=== PATIENT | female | born 1980 | race Caucasian/White ===

== ENCOUNTER 2017-09-17 21:17 | Emergency (ER) | payer BC, OTHER ==
[2017-09-17 21:26] VITALS: TEMP 98.1; BMI 28.3
--- NOTE | 2017-09-17 21:29 | PDOC ---
History of Present Illness - General Chief Complaint: Pain Stated Complaint: ABDOMIN AND SIDE PAIN Time Seen by Provider: 09/17/17 21:28 History Source: Patient Exam Limitations: No Limitations - History of Present Illness Initial Comments: 09/17/17 22:18 36 year old female with pmhx of asthma presented to the hospital today with one day history of sever abdominal pain that started yesterday afternoon , 02/26, local non radiating , mid epigastric, continuous , worsen with food, first time pain , she never had similiar pain before , she denies fever, chills , N/V/D/C, pt reports ear infection Monday and was treated at [facility] with Augmentin that cause her rash and diarrhea that resolved when she stop taking the Augmentin . She denies nay headache, lightheadedness, sore throat, chest pain , sob , she reports little cough non productive , she denies any hematuria , urinary symptoms , she currently has her periods. PMh: Asthma PSHx : X3 Allergies: Augmentin( Rash and diarrhea) , Azithromycine Meds: NOne FH: Ovarian cancer gran mother, DM aunt . Social: 06/22 PPD for one year , drink socially, denies drugs Physical exam: Vital Signs Period Temp Pulse Resp BP Sys/Weaver Pulse Ox Last 24 Hr 98.1 F 81 18 120/70 100 General: well nourished in NAD Head: NC/AT , Neck: supple no lymphademopathy ENT: MMM, HARINDER, EOMI, No exudate Lungs: CTA B/L Haert: RRR, no MRG Abdomen : soft, mid epigastric tenderness,Berg;s positive , + BS Neuro: no focal deficit, normal speeach and walk Skin: warm and dry Legs: No edema , + 2 DP DD: Biliary cholic choledocholithisis Ovarian cyst hepatic pathology cholitis Work UP: CBC, CMP US abdomen IV fluids BHCG EKG Past History - Past Medical History Allergies/Adverse Reactions: Allergies Allergy/AdvReac Type Severity Reaction Status Date / Time azithromycin [From Zithromax] Allergy Severe Hives Verified 09/17/17 21:22 aspirin Allergy Intermediate Hives Verified 09/17/17 21:22 amoxicillin [From Augmentin] Allergy Verified 09/17/17 21:22 clavulanic acid Allergy Verified 09/17/17 21:22 [From Augmentin] Home Medications: Ambulatory Orders Ibuprofen 600 mg PO BID PRN 10 Days #20 tablet 09/18/17 Anemia: Yes Asthma: Yes COPD: No - Immunization History Immunization Up to Date: Yes - Suicide/Smoking/Psychosocial Hx Smoking Status: No Smoking History: Former smoker Have you smoked in the past 12 months: Yes Number of Cigarettes Smoked Daily: 5 Information on smoking cessation initiated: No Hx Alcohol Use: Yes (social) Substance Use Type: None *Physical Exam - Vital Signs Last Vital Signs Temp Pulse Resp BP Pulse Ox 98.1 F 81 18 120/70 100 09/17/17 21:24 09/17/17 21:24 09/17/17 21:24 09/17/17 21:24 09/17/17 21:24 ED Treatment Course - LABORATORY CBC & Chemistry Diagram: 09/17/17 22:16 09/17/17 22:16 *DC/Admit/Observation/Transfer Diagnosis at time of Disposition: Fatty liver - Discharge Dispostion Disposition: HOME Condition at time of disposition: Improved - Prescriptions Prescriptions: Ibuprofen 600 mg PO BID PRN 10 Days #20 tablet PRN Reason: Pain - Referrals Referrals: Doctor Josie [Other] - Patient Instructions Additional Instructions: We saw that you have some changes in your liver that need to be followed up by 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 You need to make an appointment with them this week to have this further evaluated. Please avoid alcohol use until then. You can use ibuprofen for your pain. Please return to the ED if you have new or worsening symptoms. - Post Discharge Activity
[2017-09-17] MEDS ORDERED: SODIUM CHLORIDE 1,000 ML IV SCH (22:15)
[2017-09-17] MEDS ORDERED: ACETAMINOPHEN 1000 MG/100 ML VIAL (NON FORMULARY) IVPB ONE (22:15)
[2017-09-17] MEDS ORDERED: ONDANSETRON 4 MG/2 ML VIAL IVPUSH ONE (22:16)
[2017-09-17] MEDS ORDERED: ACETAMINOPHEN INJECTION 100 ML IVPB ONE (22:28)
[2017-09-17 22:29] LABS: URINE APPEARANCE CLEAR; URINE BILIRUBIN NEGATIVE (<2.0 mg/dL); URINE BLOOD NEGATIVE (NEGATIVE); URINE COLOR LTYELLOW; URINE GLUCOSE (UA) NEGATIVE (NEGATIVE); URINE KETONE NEGATIVE (NEGATIVE); URINE LEUK ESTERASE NEGATIVE (NEGATIVE); URINE NITRITE NEGATIVE (NEGATIVE); URINE PROTEIN NEGATIVE (NEGATIVE); URINE UROBILINOGEN NEGATIVE mg/dL (0.2-1.0)
[2017-09-17 22:32] LABS: BASO % 0.6 % (0-2.0); EOS % 3.5 % (0-4.5); HEMATOCRIT 28.9 % (32.4-45.2); HEMOGLOBIN 9.4 GM/dL (10.7-15.3); MCH 23.9 pg (25.7-33.7); MCHC 32.5 g/dl (32.0-36.0); MEAN CELL VOLUME 73.5 fl (80-96); MEAN PLT VOLUME 9.1 fl (7.5-11.1); NEUT % 48.9 % (42.8-82.8); PLATELET COUNT 221 K/MM3 (134-434); RBC 3.94 M/mm3 (3.60-5.2); RDW 14.7 % (11.6-15.6); WHITE BLOOD COUNT 5.2 K/mm3 (4.0-10.0)
[2017-09-17 23:01] LABS: ALBUMIN 3.9 g/dl (3.4-5.0); ANION GAP 6 (8-16); BLOOD UREA NITROGEN 16 mg/dL (7-18); CALCIUM 8.4 mg/dL (8.5-10.1); CHLORIDE 107 mmol/L (98-107); CO2 26 mmol/L (21-32); CREATININE 0.8 mg/dL (0.55-1.02); GLUCOSE,RANDOM 86 mg/dL (74-106); POTASSIUM 4.1 mmol/L (3.5-5.1); SGOT/AST 10 U/L (15-37); SGPT/ALT 17 U/L (12-78); SODIUM 139 mmol/L (136-145); TOT PROT 6.9 g/dl (6.4-8.2)
[2017-09-17 23:02] LABS: ALK PHOS 39 U/L (45-117)
--- NOTE | 2017-09-17 23:03 | PDOC ---
Attending Attestation - Resident Resident Name: Devin Villavicencio - ED Attending Attestation I have performed the following: I have examined & evaluated the patient, The case was reviewed & discussed with the resident, I agree w/resident's findings & plan, Exceptions are as noted - HPI HPI: 09/18/17 00:18 36 yo female with epigastric pain and nausea - Physicial Exam PE: 09/18/17 00:19 36 yo female w epigastric pain abd exam epigastric tenderness to deep palpation but no guarding or rebound cvs [id number] lungs cta b/l - Medical Decision Making 09/18/17 00:20 labs reviewed Us +fatty liver ,no cholecytitis plan pt had gastric sleeve 2 years ago and does have a gastroentologist to follow up with
[2017-09-17 23:05] LABS: BILIRUBIN,TOTAL < 0.1 mg/dL (0.2-1.0); LIPASE 290 U/L (73-393)
--- NOTE | 2017-09-18 00:25 | PDOC ---
*Physical Exam - Vital Signs Last Vital Signs Temp Pulse Resp BP Pulse Ox 98.1 F 81 18 120/70 99 09/17/17 21:24 09/17/17 21:24 09/17/17 21:24 09/17/17 21:24 09/17/17 22:43 ED Treatment Course - LABORATORY CBC & Chemistry Diagram: 09/17/17 22:16 09/17/17 22:16 - ADDITIONAL ORDERS Additional order review: Laboratory Results 09/17/17 09/17/17 09/17/17 22:16 22:16 22:16 Sodium 139 Potassium 4.1 Chloride 107 Carbon Dioxide 26 Anion Gap 6 L BUN 16 Creatinine 0.8 Creat Clearance w eGFR > 60 Random Glucose 86 Calcium 8.4 L Total Bilirubin < 0.1 L D AST 10 L ALT 17 Alkaline Phosphatase 39 L Total Protein 6.9 Albumin 3.9 Lipase 290 Serum , Qual Negative Urine Color Ltyellow Urine Appearance Clear Urine pH 6.0 Ur Specific [place] 1.020 Urine Protein Negative Urine Glucose (UA) Negative Urine Ketones Negative Urine Blood Negative Urine Nitrite Negative Urine Bilirubin Negative Urine Urobilinogen Negative Ur Leukocyte Esterase Negative 09/17/17 22:16 RBC 3.94 MCV 73.5 L MCHC 32.5 RDW 14.7 D MPV 9.1 Neutrophils % 48.9 D Lymphocytes % 42.0 H Monocytes % 5.0 Eosinophils % 3.5 Basophils % 0.6 - Medications Given in the ED: ED Medications Discontinued Medications Generic Name Dose Route Start Last Admin Trade Name Pelon PRN Reason Stop Dose Admin Acetaminophen 1,000 mg 09/17/17 22:15 09/17/17 22:26 Ofirmev Injection - IVPB 09/17/17 22:16 1,000 mg ONCE ONE Administration Ondansetron HCl 4 mg 09/17/17 22:16 09/17/17 22:38 Zofran Injection IVPUSH 09/17/17 22:17 Not Given ONCE ONE Medical Decision Making - Medical Decision Making 36 year old female 2 years s/p gastric sleeve presenting with RUQ pain for the past day. RUQ U/S only demonstrated fatty liver but all labs WNL and pain resolved with Tylenol 1 G and 1 L NS. Patient would like to go home. Will DC with follow up instructions with Dr. Cary and Dr. Solomon her PCP and GI doctor who did her gastric sleeve. Patient given paper copies of imaging results and lab values. Will write prescription for Ibuprofen. 09/18/17 00:19 *DC/Admit/Observation/Transfer Diagnosis at time of Disposition: Fatty liver - Discharge Dispostion Disposition: HOME Condition at time of disposition: Improved Admit: No - Prescriptions Prescriptions: Ibuprofen 600 mg PO BID PRN 10 Days #20 tablet PRN Reason: Pain - Referrals Referrals: Doctor Josie [Other] - Patient Instructions Additional Instructions: We saw that you have some changes in your liver that need to be followed up by your animal attendants and trainers. You need to make an appointment with them this week to have this further evaluated. Please avoid alcohol use until then. You can use ibuprofen for your pain. Please return to the ED if you have new or worsening symptoms. - Post Discharge Activity
--- NOTE | 2017-09-18 11:32 | EKG ---
Test Reason : Blood Pressure : / mmHG Vent. Rate : 068 BPM Atrial Rate : 068 BPM P-R Int : 098 ms QRS Dur : 094 ms QT Int : 436 ms P-R-T Axes : 015 025 015 degrees QTc Int : 463 ms SINUS RHYTHM WITH SHORT MT RSR' OR QR PATTERN IN V1 SUGGESTS RIGHT VENTRICULAR CONDUCTION DELAY LOW VOLTAGE QRS BORDERLINE ECG WHEN COMPARED WITH ECG OF 26-JAN-2014 23:36, T WAVE VARIATION Confirmed by BILLY BUSTAMANTE, DESTINY ([id number]) on 09/18/2017 11:31:21 AM Referred By: Confirmed By:DESTINY CERVANTES MD
== END 2017-09-18 00:41 | disposition home or self-care (01) ==
LOC: JER 21:17
PROC: 3E0337Z Introduction of Electrolytic and Water Balance Substance into Peripheral Vein, Percutaneous Approach (ICD-10-PCS; principal; 2017-09-17)
PROC: 3E033NZ Introduction of Analgesics, Hypnotics, Sedatives into Peripheral Vein, Percutaneous Approach (ICD-10-PCS; 2017-09-17)
DX: K76.0 Fatty (change of) liver, not elsewhere classified (principal)
CPT/HCPCS: 36415; 76705-TC; 80053; 81003; 83690; 84703; 85025; 93005; 93010; 99282-25; J0131; J7030

== ENCOUNTER 2019-07-01 15:41 | Observation (INO) | payer BC ==
--- NOTE | 2019-07-01 16:02 | PDOC ---
History of Present Illness - General Chief Complaint: Chest Pain Stated Complaint: CHEST PAIN Time Seen by Provider: 07/01/19 15:48 - History of Present Illness Initial Comments: Ms. Oakley is a 38 y/o female with no significant PMH presenting with left sided chest pain that started at 10am this morning. Reports that the pain is intermittent. Pain radiating down her left arm. No radiation to the neck or back. Reports associated shortness of breath at rest over the past week. Reports that she smoked a Juul this morning and has been smoking them for the past several months. Also reports associated heart palpitations today that were faster than prior. The last time she had chest pain was several months ago. Denies abdominal pain, denies urinary symptoms. PMH: none SocHx: denies etoh/drug use, reports caffeine use Meds: none Past History - Past Medical History Allergies/Adverse Reactions: Allergies Allergy/AdvReac Type Severity Reaction Status Date / Time azithromycin [From Zithromax] Allergy Severe Hives Verified 07/01/19 15:47 aspirin Allergy Intermediate Hives Verified 07/01/19 15:47 amoxicillin [From Augmentin] Allergy Verified 07/01/19 15:47 clavulanic acid Allergy Verified 07/01/19 15:47 [From Augmentin] Home Medications: Ambulatory Orders NK [No Known Home Medication] 07/01/19 Anemia: Yes Asthma: Yes COPD: No - Immunization History Immunization Up to Date: Yes - Psycho Social/Smoking Cessation Hx Smoking Status: No Smoking History: Never smoked Have you smoked in the past 12 months: Yes Number of Cigarettes Smoked Daily: 5 Hx Alcohol Use: Yes (social) Drug/Substance Use Hx: No Substance Use Type: None Review of Systems - Review of Systems Comments:: GENERAL/CONSTITUTIONAL: No fever or chills. No weakness._ HEAD, EYES, EARS, NOSE AND THROAT: No change in vision. No change in hearing. No sore throat._ CARDIOVASCULAR: Reports chest pain and shortness of breath. Reports palpitations. RESPIRATORY: Denies cough, hemoptysis_ GASTROINTESTINAL: No nausea, vomiting. Reports constipation. GENITOURINARY: No dysuria, frequency, or change in urination._ MUSCULOSKELETAL: No joint or muscle swelling or pain. No neck or back pain._ SKIN: No rash_ NEUROLOGIC: No headache, vertigo, loss of consciousness, or change in strength/ sensation._ ENDOCRINE: No increased thirst. No abnormal weight change_ HEMATOLOGIC/LYMPHATIC: No anemia, easy bleeding, or history of blood clots._ ALLERGIC/IMMUNOLOGIC: No hives or skin allergy._ *Physical Exam - Vital Signs Last Vital Signs Temp Pulse Resp BP Pulse Ox 98.1 F 70 18 97/48 L 100 07/02/19 04:00 07/02/19 04:00 07/02/19 04:00 07/02/19 04:00 07/02/19 04:00 - Physical Exam GENERAL: Awake, alert, and oriented to person/place/time, in no acute distress_ HEAD: No signs of trauma, normoc ephalic, atraumatic _ EYES: PERRLA, EOMI, sclera anicteric, conjunctiva clear_ ENT: Hearing grossly normal, nares patent, oropharynx clear without exudates. No uvular deviation. Moist mucosa_ NECK: Normal ROM, supple, no lymphadenopathy, JVD, or masses_ LUNGS: No distress, speaks in full sentences, clear to auscultation bilaterally _ HEART: Regular rate and rhythm, normal S1 and S2, no murmurs appreciated, peripheral pulses normal and equal bilaterally._ CHEST: No chest wall tenderness. No rash or bruising over chest wall. ABDOMEN: Soft, nontender, normoactive bowel sounds. No guarding, no rebound. No masses_ BACK: Mild left TTP. EXTREMITIES: Normal inspection, Normal range of motion, no edema. No clubbing or cyanosis_ NEUROLOGICAL: Cranial nerves II through XII grossly intact. Normal speech, normal gait, no focal sensorimotor deficits _ SKIN: Warm, Dry, normal turgor, no rashes or lesions noted_ ED Treatment Course - LABORATORY CBC & Chemistry Diagram: 07/01/19 16:15 07/01/19 16:15 - ADDITIONAL ORDERS Additional order review: Laboratory Results 07/01/19 07/01/19 17:36 17:36 Iron 12 L 9 L TIBC 429 Iron Saturation 2 L Unsaturated IBC 417 H 07/01/19 16:15 RBC 4.22 MCV 61.8 L MCHC 29.0 L RDW 16.7 H MPV 8.5 Neutrophils % No Result Required. Lymphocytes % No Result Required. - RADIOLOGY Radiology Studies Ordered: Category Date Time Status CHEST PA & LAT [RAD] Stat Radiology 07/01/19 15:49 Completed - Medications Given in the ED: ED Medications Discontinued Medications Generic Name Dose Route Start Last Admin Trade Name Pelon PRN Reason Stop Dose Admin Furosemide 20 mg 07/02/19 01:00 07/02/19 01:00 Lasix Injection - IVPUSH 07/02/19 01:01 20 mg ONCE ONE Administration Medical Decision Making - Medical Decision Making 07/01/19 15:45 EKG shows sinus rhythm, short CT (98 ms), no ST elevation/depression, no QTc prologation, no axis deviation. Short CT is present on prior EKG. 07/01/19 16:00 38F with no PMH presenting with chest pain that started at 10am today. -cbc, cmp, mg -cxr, ekg, trop -ua 07/01/19 17:00 CXR shows no acute intrathoracic pathology. 07/01/19 17:30 Labs reviewed. Pt is anemic, consented for blood transfusion. -type and screen -2 units pRBC Laboratory Last Values WBC 5.3 K/mm3 (4.0-10.8) 07/01/19 16:15 RBC 4.22 M/mm3 (3.60-5.2) 07/01/19 16:15 Hgb 7.5 GM/dl (10.7-15.3) L 07/01/19 16:15 Hct 26.0 % (32.4-45.2) L 07/01/19 16:15 MCV 61.8 fl (80-96) L 07/01/19 16:15 MCH 17.9 pg (25.7-33.7) L 07/01/19 16:15 MCHC 29.0 g/dl (32.0-36.0) L 07/01/19 16:15 RDW 16.7 % (11.6-15.6) H 07/01/19 16:15 Plt Count 300 K/MM3 (134-434) 07/01/19 16:15 MPV 8.5 fl (7.5-11.1) 07/01/19 16:15 Absolute Neuts (auto) 3.2 K/mm3 07/01/19 16:15 Neutrophils % No Result Required. 07/01/19 16:15 Neutrophils % (Manual) 69.0 % (42.8-82.8) 07/01/19 16:15 Lymphocytes % No Result Required. 07/01/19 16:15 Lymphocytes % (Manual) 26.0 % (8-40) 07/01/19 16:15 Monocytes % (Manual) 5 % (3.8-10.2) 07/01/19 16:15 Hypochromia 3+ 07/01/19 16:15 Platelet Estimate Adequate 07/01/19 16:15 Platelet Comment Few large platelets 07/01/19 16:15 Anisocytosis 1+ 07/01/19 16:15 Microcytosis 3+ 07/01/19 16:15 Schistocytes 1+ 07/01/19 16:15 Retic Count 0.80 % (0.5-1.5) 07/01/19 17:36 PT with INR 13.3 SEC (10.2-13.0) H 07/01/19 17:05 INR 1.19 (0.82-1.09) 07/01/19 17:05 PTT (Actin FS) 32.4 SECONDS (25.2-36.5) 07/01/19 17:05 Sodium 135 mmol/L (136-145) L 07/01/19 16:15 Potassium 4.1 mmol/L (3.5-5.1) 07/01/19 16:15 Chloride 105 mmol/L (98-107) 07/01/19 16:15 Carbon Dioxide 22 mmol/L (21-32) 07/01/19 16:15 Anion Gap 8 MMOL/L (8-16) 07/01/19 16:15 BUN 13.0 mg/dl (7-18) 07/01/19 16:15 Creatinine 0.8 mg/dl (0.55-1.3) 07/01/19 16:15 Est GFR (CKD-EPI)AfAm 109.93 07/01/19 16:15 Est GFR (CKD-EPI)NonAf 94.85 07/01/19 16:15 Random Glucose 92 mg/dl (74-106) 07/01/19 16:15 Calcium 8.6 mg/dl (8.5-10) 07/01/19 16:15 Magnesium 1.8 mg/dL (1.8-2.4) 07/01/19 16:15 Iron 9 ug/dL (50-175) L 07/01/19 17:36 TIBC 429 ug/dL (250-450) 07/01/19 17:36 Iron Saturation 2 % (17.5-39) L 07/01/19 17:36 Unsaturated IBC 417 ug/dL (200-275) H 07/01/19 17:36 Total Bilirubin 0.6 mg/dl (0.2-1) 07/01/19 16:15 AST 15 U/L (15-37) 07/01/19 16:15 ALT 11 U/L (13-61) L 07/01/19 16:15 Alkaline Phosphatase 35 U/L (45-117) L 07/01/19 16:15 Creatine Kinase 49 U/L (26-192) 07/01/19 16:15 Troponin I < 0.02 ng/ml (0.00-0.05) 07/02/19 04:30 Total Protein 7.2 g/dl (6.4-8.2) 07/01/19 16:15 Albumin 4.1 g/dl (3.4-5.0) 07/01/19 16:15 TSH 1.37 uIU/ml (0.358-3.74) 07/01/19 16:15 Urine Color Yellow 07/01/19 16:15 Urine Appearance Clear 07/01/19 16:15 Urine pH 6.5 (4.5-8) 07/01/19 16:15 Urine Protein Negative (NEGATIVE) 07/01/19 16:15 Urine Glucose (UA) Negative (NEGATIVE) 07/01/19 16:15 Urine Ketones Negative (NEGATIVE) 07/01/19 16:15 Urine Blood Negative (NEGATIVE) 07/01/19 16:15 Urine Nitrite Negative (NEGATIVE) 07/01/19 16:15 Urine Bilirubin Negative (NEGATIVE) 07/01/19 16:15 Urine Urobilinogen 0.2 (0.2-1.0) 07/01/19 16:15 Ur Leukocyte Esterase Negative (NEGATIVE) 07/01/19 16:15 Urine HCG, Qual Negative 07/01/19 16:15 Blood Type O POSITIVE 07/01/19 17:36 Antibody Screen Negative 07/01/19 17:36 Crossmatch See Detail 07/01/19 17:36 07/01/19 17:54 D/w [facility] Myers who accepts the patient for admission under Dr. Galarza. Discharge - Discharge Information Problems reviewed: Yes Clinical Impression/Diagnosis: Symptomatic anemia Condition: Stable - Admission Yes - Follow up/Referral - Patient Discharge Instructions - Post Discharge Activity
--- NOTE | 2019-07-01 16:10 | PDOC ---
Attending Attestation - Resident Resident Name: QamarRandal - ED Attending Attestation I have performed the following: I have examined & evaluated the patient, The case was reviewed & discussed with the resident, I agree w/resident's findings & plan - HPI HPI: 07/01/19 16:32 38 YOF with h/o asthma presenting with chest pain. Left sided chest pain radiating to arm that started this morning a/w Palpitations, intermittently since yesterday. Mild sob, worse with exertion starting 1 week ago Left flank pain 1 week ago Constipation x 1 week No urinary sx, no hematuria Smoked Lucien today, regular Lucien user x several months +caffeine intake regularly pt endorses heavy menstrual periods x long time, noncompliant with iron pills, has seen her OB for it, no prior history of transfusion. LMP 06/07/19. usually heavy x 5 days, menses lasts 7 days. 07/01/19 17:26 07/01/19 18:06 - Physicial Exam PE: 07/01/19 16:31 Agree with the resident's HPI and PE as documented in the electronic medical record. NAD, EOMI, PERRL, pale conjunctiva, anicteric; neck supple. lungs clear, RRR, no murmur, abdomen soft nontender. No rebound, no guarding. Back nontender. JOSEPH x4, no focal neuro deficits. No peripheral edema. pale color for ethnicity, WWP. 07/01/19 17:28 07/01/19 18:05 - Medical Decision Making 07/01/19 16:31 Vital Signs Temp Pulse Resp BP Pulse Ox 98 F 73 18 120/71 100 07/01/19 15:41 07/01/19 15:41 07/01/19 15:41 07/01/19 15:41 07/01/19 15:41 vitals reviewed, wnl, reassuring, normotensive. DDx chest pain: ACS, coronary vasospasm, NSTEMI, arrhythmia, unstable angina, PE , dissection, PUD, esophageal spasm, GERD, gastritis, costochondritis, pneumonia , pleurisy, pericarditis/myocarditis. Anemia, dehydration, electrolyte/ metabolic derangements. pneumomediastinum. Considered but clinically doubt based on HPI and PE: Low suspicion for pulmonary embolism or dissection. PERC criteria neg, defer dimer testing as there is alternative etiology for cp/ sob and palp. No evidence of ACS, pericarditis, myocarditis, pulmonary embolism, pneumothorax , pneumonia, Zoster, or esophageal perforation. Historically not abrupt in onset , tearing or ripping, pulses symmetric, no evidence of aortic dissection. EKG normal sinus rhythm, no interval abnormalities, narrow QRS, ST and T wave segments and morphology normal. Nonspecific T wave abnormalities, unchanged from prior 07/01/19 17:03 trop neg, unlikely cardiac. UA neg for blood/infection, so doubt kidney stones/ pyelo, no urinary sx to suggest infection. neg preg test. labs and lytes remarkable for acute on chronic anemia, H/H down to 7.5/26, baseline Hb ~10 in prior years. symptomatic anemia. transfuse 2 units prbc iron studies/anemia panel sent bleeding history, menometrorhaggia likely contributor for symptomatic anemia. txs sent x2 consent for blood transfusion discussed, risks and benefits, pt agreeable, verbalizing risks such as incompatibility, immune reaction, allergic reaction, anaphylaxis, TACO, TRALI, infection, fever, myalgias, urticaria, admit for symptomatic anemia, transfusion, supportive care and close monitoring s/o to [facility], admitting to Dr Galarza. for now, 1 unit prbc, then will reassess 07/01/19 18:06 Heart Score/ECG Review #1 ECG reviewed & interpreted by me at: 16:00 General ECG Interpretation: Sinus Rhythm, Normal Rate, Normal Intervals Compared to previous ECG there are: No significant change 07/01/19 16:10 EKG normal sinus rhythm 72 bpm, short [place] interval and 98 ms, narrow QRS, ST and T wave segments and morphology normal. Nonspecific T wave abnormalities in the inferior leads, similar to prior EKG
[2019-07-01 16:45] LABS: HEMOGLOBIN 7.5 GM/dl (10.7-15.3); MEAN CELL VOLUME 61.8 fl (80-96); MEAN PLT VOLUME 8.5 fl (7.5-11.1); PLATELET COUNT 300 K/MM3 (134-434); RBC 4.22 M/mm3 (3.60-5.2); RDW 16.7 % (11.6-15.6); WHITE BLOOD COUNT 5.3 K/mm3 (4.0-10.8)
[2019-07-01 16:47] LABS: MCH 17.9 pg (25.7-33.7)
[2019-07-01 17:02] LABS: ALBUMIN 4.1 g/dl (3.4-5.0); BILIRUBIN,TOTAL 0.6 mg/dl (0.2-1); CALCIUM 8.6 mg/dl (8.5-10); CREATININE 0.8 mg/dl (0.55-1.3); MAGNESIUM 1.8 mg/dL (1.8-2.4); POTASSIUM 4.1 mmol/L (3.5-5.1); TOT PROT 7.2 g/dl (6.4-8.2)
[2019-07-01 17:33] LABS: ACTIVATED PTT 32.4 SECONDS (25.2-36.5)
[2019-07-01 17:37] LABS: INR 1.19 (0.82-1.09); PROTHROMBIN TIME (PATIENT) 13.3 SEC (10.2-13.0)
[2019-07-01 17:38] LABS: ANISOCYTOSIS 1+
[2019-07-01 17:39] LABS: PLATELET ESTIMATE ADEQUATE
--- NOTE | 2019-07-01 18:19 | CON.CARD ---
Consult Consult Specialty:: Cardiology Referred by:: Hospitalist Medicine Reason for Consultation:: Chest pain - History of Present Illness Chief Complaint: Chest pain History of Present Illness: Ms. Oakley is a 38 y/o female with no significant PMH presenting with sharp, non-exertional left-sided pleuritic chest pain radiating down her left arm. No radiation to the neck or back. Reports associated shortness of breath at rest over the past week. Reports that she smoked a Juul this morning and has been smoking them for the past several months. Also reports associated heart palpitations. Anemic with heavy menses. - History Source History Provided By: Patient Limitations to Obtaining History: No Limitations - Alcohol/Substance Use Hx Alcohol Use: Yes (social) - Smoking History Smoking history: Never smoked Have you smoked in the past 12 months: Yes Aproximately how many cigarettes per day: 5 Home Medications - Allergies Allergies/Adverse Reactions: Allergies Allergy/AdvReac Type Severity Reaction Status Date / Time azithromycin [From Zithromax] Allergy Severe Hives Verified 07/01/19 15:47 aspirin Allergy Intermediate Hives Verified 07/01/19 15:47 amoxicillin [From Augmentin] Allergy Verified 07/01/19 15:47 clavulanic acid Allergy Verified 07/01/19 15:47 [From Augmentin] - Home Medications Home Medications: Ambulatory Orders NK [No Known Home Medication] 07/01/19 Review of Systems - Review of Systems Cardiovascular: reports: Chest Pain, Shortness of Breath Vital Signs: Vital Signs Temperature 98 F 07/01/19 15:41 Pulse Rate 73 07/01/19 15:41 Respiratory Rate 18 07/01/19 15:41 Blood Pressure 120/71 07/01/19 15:41 O2 Sat by Pulse Oximetry (%) 100 07/01/19 15:41 Constitutional: Yes: No Distress, Calm Neck: Yes: Supple Respiratory: Yes: Regular, CTA Bilaterally Gastrointestinal: Yes: Normal Bowel Sounds, Soft Cardiovascular: Yes: Regular Rate and Rhythm JVD: No Carotid Bruit: No Heart Sounds: Yes: S1, S2 Edema: No - Other Data Labs, Other Data: CBC, BMP 07/01/19 16:15 07/01/19 16:15 INR, PTT INR 1.19 (0.82-1.09) 07/01/19 17:05 Troponin, BNP 07/01/19 15:54 Troponin I < 0.03 Troponin, BNP 07/01/19 15:54 Troponin I < 0.03 Imaging - Results Chest X-ray: Report Reviewed (NAD) Problem List - Problems (1) Atypical chest pain Code(s): R07.89 - OTHER CHEST PAIN (2) Anemia Code(s): D64.9 - ANEMIA, UNSPECIFIED Qualifiers: Iron deficiency anemia type: chronic blood loss (3) Nicotine vapor product user Code(s): Z72.0 - TOBACCO USE Assessment/Plan EKG shows sinus rhythm, short [place] (98 ms), no ST elevation/depression, no QTc prolongation, no axis deviation. Short [place] is present on prior EKG. 1. Atypical chest pain syndrome and dyspnea ? bronchospasm/ATX with Juul use 2. Palpitations r/o sustained arrhythmia 3. Anemia referable to menometrorhaggia P:1. Transfusing 1 U pRBC to maintain Hgb>8.0, f/u iron studies and supplement 2. Ruling out for MT 3. Abstinence from vaping, BD and O2 as needed 4. Thank you for consultative opportunity
--- NOTE | 2019-07-01 18:21 | HP ---
CHIEF COMPLAINT: Chest pain PCP: Russ Streeter DRAPERY CUTTER MACHINE: Dr. Isak Sow [place] HISTORY OF PRESENT ILLNESS: Ms. Oakley is a 38 year-old female with a PMH significant for anemia, asthma, s /p gastric sleeve, who presented to the ED for evaluation of chest pain. Patient reports onset of left-sided chest pain at 10:00am this morning. Patient describes the pain as sharp, intermittent, radiating from right to left chest and down the left arm. Patient also reports a rapid heart beat over the past several days with accompanying shortness of breath. She has felt fatigued x 1 week. A year ago patient was told she had fibroids. She saw a DRAPERY CUTTER MACHINE doctor last week and had a transvaginal US. LMP 06/07/19. No prior history of transfusion. 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 Smoking: quit smoking 4 years ago, smoked since age 14; has been vaping Juul x several months Alcohol: occasional Drugs: denies Family history: mother age 58 with anemia; father 60 with HTN, kidney stones; 2 step siblings a&w; 3 children a&w Allergies azithromycin [From Zithromax] Allergy (Severe, Verified 07/01/19 15:47) Hives aspirin Allergy (Intermediate, Verified 07/01/19 15:47) Hives amoxicillin [From Augmentin] Allergy (Verified 07/01/19 15:47) clavulanic acid [From Augmentin] Allergy (Verified 07/01/19 15:47) HOME MEDICATIONS: Home Medications Medication Instructions Recorded NK [No Known Home Medication] 07/01/19 REVIEW OF SYSTEMS CONSTITUTIONAL: +fatigue, sweats Absent: fever, chills, diaphoresis, generalized weakness, malaise, loss of appetite, weight change HEENT: Absent: rhinorrhea, nasal congestion, throat pain, throat swelling, difficulty swallowing, mouth swelling, ear pain, eye pain, visual changes CARDIOVASCULAR: +chest pain, rapid heart rate Absent: syncope, palpitations, irregular heart rate, lightheadedness, peripheral edema RESPIRATORY: Absent: cough, shortness of breath, dyspnea with exertion, orthopnea, wheezing, stridor, hemoptysis GASTROINTESTINAL: Absent: abdominal pain, abdominal distension, nausea, vomiting, diarrhea, constipation, melena, hematochezia GENITOURINARY: Absent: dysuria, frequency, urgency, hesitancy, hematuria, flank pain, genital pain MUSCULOSKELETAL: Absent: myalgia, arthralgia, joint swelling, back pain, neck pain SKIN: Absent: rash, itching, pallor HEMATOLOGIC/IMMUNOLOGIC: Absent: easy bleeding, easy bruising, lymphadenopathy, frequent infections ENDOCRINE: Absent: unexplained weight gain, unexplained weight loss, heat intolerance, cold intolerance NEUROLOGIC: Absent: headache, focal weakness or paresthesias, dizziness, unsteady gait, seizure, mental status changes, bladder or bowel incontinence PSYCHIATRIC: Absent: anxiety, depression, suicidal or homicidal ideation, hallucinations. PHYSICAL EXAMINATION Vital Signs - 24 hr 07/01/19 15:41 Temperature 98 F Pulse Rate 73 Respiratory 18 Rate Blood Pressure 120/71 O2 Sat by Pulse 100 Oximetry (%) GENERAL: Awake, alert, and fully oriented, in no acute distress. HEAD: Normal with no signs of trauma. EYES: Pupils equal, round and reactive to light, extraocular movements intact, sclera anicteric, conjunctiva clear. EARS, NOSE, THROAT: Ears normal, nares patent, oropharynx clear without exudates. Moist mucous membranes. LUNGS: Breath sounds equal, clear to auscultation bilaterally. No wheezes, and no crackles. No accessory muscle use. HEART: Regular rate and rhythm, normal S1 and S2 ABDOMEN: Soft, nontender, not distended MUSCULOSKELETAL: Normal range of motion at all joints. No bony deformities or tenderness. No CVA tenderness. UPPER EXTREMITIES: 2+ pulses, warm, well-perfused. No cyanosis. No clubbing. No peripheral edema. LOWER EXTREMITIES: 2+ pulses, warm, well-perfused. No calf tenderness. No peripheral edema. NEUROLOGICAL: Cranial nerves II-XII intact. Normal speech. Laboratory Results - last 24 hr 07/01/19 07/01/19 07/01/19 15:54 16:15 16:15 WBC 5.3 RBC 4.22 Hgb 7.5 L Hct 26.0 L MCV 61.8 L MCH 17.9 L MCHC 29.0 L RDW 16.7 H Plt Count 300 MPV 8.5 Absolute Neuts (auto) 3.2 Neutrophils % No Result Required. Neutrophils % (Manual) 69.0 Lymphocytes % No Result Required. Lymphocytes % (Manual) 26.0 Monocytes % (Manual) 5 Hypochromia 3+ Platelet Estimate Adequate Platelet Comment Few large platelets Anisocytosis 1+ Microcytosis 3+ Schistocytes 1+ PT with INR INR PTT (Actin FS) Sodium 135 L Potassium 4.1 Chloride 105 Carbon Dioxide 22 Anion Gap 8 BUN 13.0 Creatinine 0.8 Est GFR (CKD-EPI)AfAm 109.93 Est GFR (CKD-EPI)NonAf 94.85 Random Glucose 92 Calcium 8.6 Magnesium 1.8 Total Bilirubin 0.6 AST 15 ALT 11 L Alkaline Phosphatase 35 L Creatine Kinase 49 Troponin I < 0.03 Total Protein 7.2 Albumin 4.1 Urine Color Urine Appearance Urine pH Urine Protein Urine Glucose (UA) Urine Ketones Urine Blood Urine Nitrite Urine Bilirubin Urine Urobilinogen Ur Leukocyte Esterase Urine HCG, Qual 07/01/19 07/01/19 07/01/19 16:15 16:15 17:05 WBC RBC Hgb Hct MCV MCH MCHC RDW Plt Count MPV Absolute Neuts (auto) Neutrophils % Neutrophils % (Manual) Lymphocytes % Lymphocytes % (Manual) Monocytes % (Manual) Hypochromia Platelet Estimate Platelet Comment Anisocytosis Microcytosis Schistocytes PT with INR 13.3 H INR 1.19 PTT (Actin FS) 32.4 Sodium Potassium Chloride Carbon Dioxide Anion Gap BUN Creatinine Est GFR (CKD-EPI)AfAm Est GFR (CKD-EPI)NonAf Random Glucose Calcium Magnesium Total Bilirubin AST ALT Alkaline Phosphatase Creatine Kinase Troponin I Total Protein Albumin Urine Color Yellow Urine Appearance Clear Urine pH 6.5 Urine Protein Negative Urine Glucose (UA) Negative Urine Ketones Negative Urine Blood Negative Urine Nitrite Negative Urine Bilirubin Negative Urine Urobilinogen 0.2 Ur Leukocyte Esterase Negative Urine HCG, Qual Negative ASSESSMENT/PLAN: Ms. Oakley is a 38 year-old female with a PMH significant for anemia, asthma, and s/p gastric sleeve, placed on observation for chest pain and symptomatic anemia. Chest pain --troponin neg x 1, two pending --ECG: no acute ischemia --CXR: unremarkable --telemetry monitoring --Echo in am --allergic to ASA --cardiology consult Microcytic anemia --Hgb 7.5, last hgb value from 2017 was 9.4 --transfuse 1U PRBC tonight, repeat cbc in am --likely secondary to fibroids; had transvaginal US last week with Dr. Sow, will get results Asthma --stable --duonebs PRN FEN Fluids: PO intake adequate Electrolytes: replete as indicated Nutrition: regular diet DVT prophylaxis: subq lovenox Dispo: continues to require inpatient care. Full code. Visit type - Emergency Visit Emergency Visit: Yes ED Registration Date: 07/01/19 Care time: The patient presented to the Emergency Department on the above date and was hospitalized for further evaluation of their emergent condition. - New Patient This patient is new to me today: Yes Date on this admission: 07/02/19 - Critical Care Critical Care patient: No
[2019-07-01] MEDS ORDERED: ALBUTEROL SO4 2.5/IPRATROPIUM 0.5 INH SOL 3 ML VIAL.NEB. NEB PRN (18:29)
[2019-07-01 20:46] LABS: IRON SERUM 12 ug/dL (50-175); TOTAL IRON BINDING CAPACITY 429 ug/dL (250-450)
[2019-07-01 22:18] VITALS: BMI 31.4
[2019-07-02] MEDS ORDERED: FUROSEMIDE 40 MG/4 ML INJECTABLE VIAL IVPUSH ONE (01:00)
[2019-07-02 08:33] LABS: BASO % 0.5 % (0-2.0); EOS % 2.4 % (0-4.5); HEMATOCRIT 27.8 % (32.4-45.2); HEMOGLOBIN 8.6 GM/dl (10.7-15.3); LYMPH % 39.4 % (8-40); MCHC 30.9 g/dl (32.0-36.0); MEAN CELL VOLUME 64.4 fl (80-96); MEAN PLT VOLUME 8.7 fl (7.5-11.1); MONO % 6.2 % (3.8-10.2); NEUT % 51.5 % (42.8-82.8); PLATELET COUNT 253 K/MM3 (134-434); RDW 18.4 % (11.6-15.6); WHITE BLOOD COUNT 4.2 K/mm3 (4.0-10.8)
[2019-07-02 08:41] LABS: ADD RBC MORPHOLOGY YES; MCH 19.9 pg (25.7-33.7)
[2019-07-02] MEDS: ACETAMINOPHEN 325 MG TABLET (FP) PO PRN ×2 (09:58→15:29)
[2019-07-02] MEDS ORDERED: ENOXAPARIN NA (PORCINE) 40 MG/0.4 ML DISP.SYRIN SQ SCH (10:00)
[2019-07-02] MEDS ORDERED: POLYETHYLENE GLYCOL 3350 119 GM BTL PO SCH (10:00)
[2019-07-02 10:33] LABS: ANISOCYTOSIS 1+
[2019-07-02 10:34] LABS: PLATELET ESTIMATE ADEQUATE
[2019-07-02 10:54] LABS: BILIRUBIN,TOTAL 0.7 mg/dL (0.2-1); BLOOD UREA NITROGEN 11.8 mg/dL (7-18); CALCIUM 8.4 mg/dL (8.5-10.1); CREATININE 0.9 mg/dL (0.55-1.3); MAGNESIUM 2.1 mg/dL (1.8-2.4); POTASSIUM 4.3 mmol/L (3.5-5.1); TOT PROT 7.1 g/dl (6.4-8.2)
--- NOTE | 2019-07-02 11:55 | PN ---
Progress Note, Physician Chief Complaint: Events noted Pleuritic chest discomfort History of Present Illness: Patient was seen and examined. Awake and alert. Chart was reviewed Denies shortness of breath. Complains of intermittent palpitations - Current Medication List Current Medications: Active Medications Acetaminophen (Tylenol -) 650 mg PO Q6H PRN PRN Reason: PAIN LEVEL 1-5 Last Admin: 07/02/19 09:58 Dose: 650 mg Enoxaparin Sodium (Lovenox -) 40 mg SQ DAILY [facility] Last Admin: 07/02/19 09:59 Dose: 40 mg Polyethylene Glycol (Miralax (For Daily Use) -) 17 gm PO DAILY [facility] Last Admin: 07/02/19 09:59 Dose: 17 gm - Objective Vital Signs: Vital Signs Temperature 98.1 F 07/02/19 04:00 Pulse Rate 70 07/02/19 04:00 Respiratory Rate 16 07/02/19 09:00 Blood Pressure 97/48 L 07/02/19 04:00 O2 Sat by Pulse Oximetry (%) 99 07/02/19 09:00 Eyes: Yes: PERRL HENT: Yes: Atraumatic Neck: Yes: Supple Cardiovascular: Yes: Regular Rate and Rhythm, S1 Respiratory: Yes: CTA Bilaterally Gastrointestinal: Yes: Normal Bowel Sounds, Soft. No: Tenderness Edema: No Additional Findings/Remarks: - Review of Systems Constitutional: denies: Chills, Fever Cardiovascular: reports: Chest Pain. (+) Palpitations, Shortness of Breath Respiratory: denies: Cough, Hemoptysis, Orthopnea, PND, SOB, SOB on Exertion Gastrointestinal: denies: Abdominal Pain, Constipation, Diarrhea, Melena, Nausea , Rectal Bleeding, Vomiting Genitourinary: denies: Dysuria, Hematuria Neurological: denies: Dizziness, Headache, Seizure, Syncope Labs: CBC, BMP 07/02/19 07:25 07/02/19 07:25 INR, PTT INR 1.19 (0.82-1.09) 07/01/19 17:05 Problem List - Problems (1) Anemia Code(s): D64.9 - ANEMIA, UNSPECIFIED Qualifiers: Iron deficiency anemia type: chronic blood loss (2) Atypical chest pain Code(s): R07.89 - OTHER CHEST PAIN (3) Nicotine vapor product user Code(s): Z72.0 - TOBACCO USE (4) Symptomatic anemia Code(s): D64.9 - ANEMIA, UNSPECIFIED Assessment/Plan 1. Atypical chest pain syndrome and dyspnea ? bronchospasm/atelectasis with Juul use 2. Palpitations 3. Anemia PLAN: 1. Follow CBC and transfuse as needed 2. Echocardiography to assess LV/RV and valvular function 3. Abstinence from vaping, bronchodilator and O2 as needed Johny Loaiza MD
--- NOTE | 2019-07-02 12:44 | EKG ---
Test Reason : Blood Pressure : / mmHG Vent. Rate : 062 BPM Atrial Rate : 062 BPM P-R Int : 110 ms QRS Dur : 088 ms QT Int : 460 ms P-R-T Axes : 032 024 006 degrees QTc Int : 466 ms SINUS RHYTHM WITH SHORT OR LOW VOLTAGE QRS CANNOT RULE OUT ANTERIOR INFARCT , AGE UNDETERMINED ABNORMAL ECG WHEN COMPARED WITH ECG OF 01-JUL-2019 15:40, NO SIGNIFICANT CHANGE WAS FOUND Confirmed by MD Andrade, Isak ([id number]) on 07/02/2019 12:44:21 PM Referred By: Confirmed By:Isak Zafar MD
--- NOTE | 2019-07-02 12:45 | EKG ---
Test Reason : Blood Pressure : / mmHG Vent. Rate : 072 BPM Atrial Rate : 072 BPM P-R Int : 098 ms QRS Dur : 086 ms QT Int : 418 ms P-R-T Axes : 028 020 003 degrees QTc Int : 457 ms SINUS RHYTHM WITH SHORT NV OTHERWISE NORMAL ECG WHEN COMPARED WITH ECG OF 17-SEP-2017 22:37, T WAVE INVERSION NO LONGER EVIDENT IN ANTERIOR LEADS Confirmed by MD Andrade, Isak ([id number]) on 07/02/2019 12:44:40 PM Referred By: Confirmed By:Isak Zafar MD
[2019-07-02 14:20] VITALS: TEMP 97.9
--- NOTE | 2019-07-02 14:21 | ECHO ---
Version: 1 Name: HELENA GARZON Exam: Adult Echocardiogram Study Date: 07/02/2019, 1:30 PM Age: 38 Years MMode/2D Measurements & Calculations IVSd: 0.77 cm LVIDs: 3.1 cm LVIDd: 4.9 cm LVPWd: 0.83 cm LVOT diam: 2.00 cm Ao root diam: 2.26 cm LA dimension: 2.9 cm Doppler Measurements & Calculations MV E max bev: 87.9 cm/sec MV A max bev: 54.6 cm/sec MV E/A: 1.61 MR max P.9 mmHg Ao max P.9 mmHg Ao V2 max: 149.2 cm/sec TR max bev: 200.9 cm/sec TR max P.1 mmHg Procedure A complete two-dimensional transthoracic echocardiogram was performed (2D, M-mode, Doppler and color flow Doppler). Left Ventricle The left ventricular size, thickness and function are normal. The left ventricular ejection fraction is normal. Left Ventricular Filling pattern is normal for age. Right Ventricle The right ventricle is normal in size and function. Atria Normal left and right atrial size and function. Mitral Valve The mitral valve is normal in structure and function. Tricuspid Valve The tricuspid valve is normal in structure and function. Aortic Valve The aortic valve is normal in structure and function. No hemodynamically significant valvular aortic stenosis. Pulmonic Valve The pulmonic valve is normal in structure and function. Great Vessels The aortic root is normal size. Pericardium/Pleura There is no pericardial effusion. Summary Statements The left ventricular size, thickness and function are normal The right ventricle is normal in size and function. Jhonathan Schultz 07/02/2019, 2:20 PM Ordering Physician: Debi yMers Performed By: Delmis Danielson
[2019-07-02 15:44] VITALS: BP 99/56; PULSE 60
[2019-07-02 16:27] LABS: HEMATOCRIT 32.6 % (32.4-45.2); HEMOGLOBIN 9.8 GM/dl (10.7-15.3); MCH 20.5 pg (25.7-33.7); MEAN CELL VOLUME 68.3 fl (80-96); MEAN PLT VOLUME 8.6 fl (7.5-11.1); PLATELET COUNT 248 K/MM3 (134-434); RBC 4.77 M/mm3 (3.60-5.2); WHITE BLOOD COUNT 5.6 K/mm3 (4.0-10.8)
--- NOTE | 2019-07-02 17:22 | DS ---
Documentation entered by Lorena Stoner SCRIBE, acting as scribe for Debi Myers NP. Physical Exam: SUBJECTIVE: Patient seen and examined at bedside. OBJECTIVE: Vital Signs Period Temp Pulse Resp BP Sys/Weaver Pulse Ox Last 24 Hr 98 F-98.2 F 68-73 16-18 97-120/48-71 99-100 PHYSICAL EXAM GENERAL: The patient is awake, alert, and fully oriented, in no acute distress. ENT: Ears normal, nares patent, oropharynx clear without exudates, moist mucous membranes. LUNGS: Breath sounds equal, clear to auscultation bilaterally, no wheezes, no crackles, no accessory muscle use. HEART: Regular rate and rhythm, S1, S2 ABDOMEN: Soft, nontender, nondistended EXTREMITIES: 2+ pulses, warm, well-perfused, no edema. NEUROLOGICAL: Cranial nerves II through XII grossly intact. Normal speech, gait not observed. LABS Laboratory Results - last 24 hr 07/01/19 07/01/19 07/01/19 15:54 16:15 16:15 WBC 5.3 RBC 4.22 Hgb 7.5 L Hct 26.0 L MCV 61.8 L MCH 17.9 L MCHC 29.0 L RDW 16.7 H Plt Count 300 MPV 8.5 Absolute Neuts (auto) 3.2 Neutrophils % No Result Required. Neutrophils % (Manual) 69.0 Lymphocytes % No Result Required. Lymphocytes % (Manual) 26.0 Monocytes % (Manual) 5 Hypochromia 3+ Platelet Estimate Adequate Platelet Comment Few large platelets Anisocytosis 1+ Microcytosis 3+ Schistocytes 1+ Retic Count PT with INR INR PTT (Actin FS) Sodium 135 L Potassium 4.1 Chloride 105 Carbon Dioxide 22 Anion Gap 8 BUN 13.0 Creatinine 0.8 Est GFR (CKD-EPI)AfAm 109.93 Est GFR (CKD-EPI)NonAf 94.85 Random Glucose 92 Calcium 8.6 Magnesium 1.8 Iron TIBC Iron Saturation Unsaturated IBC Total Bilirubin 0.6 AST 15 ALT 11 L Alkaline Phosphatase 35 L Creatine Kinase 49 Troponin I < 0.03 Total Protein 7.2 Albumin 4.1 TSH 1.37 Urine Color Urine Appearance Urine pH Urine Protein Urine Glucose (UA) Urine Ketones Urine Blood Urine Nitrite Urine Bilirubin Urine Urobilinogen Ur Leukocyte Esterase Urine HCG, Qual Blood Type Antibody Screen Crossmatch 07/01/19 07/01/19 07/01/19 16:15 16:15 17:05 WBC RBC Hgb Hct MCV MCH MCHC RDW Plt Count MPV Absolute Neuts (auto) Neutrophils % Neutrophils % (Manual) Lymphocytes % Lymphocytes % (Manual) Monocytes % (Manual) Hypochromia Platelet Estimate Platelet Comment Anisocytosis Microcytosis Schistocytes Retic Count PT with INR 13.3 H INR 1.19 PTT (Actin FS) 32.4 Sodium Potassium Chloride Carbon Dioxide Anion Gap BUN Creatinine Est GFR (CKD-EPI)AfAm Est GFR (CKD-EPI)NonAf Random Glucose Calcium Magnesium Iron TIBC Iron Saturation Unsaturated IBC Total Bilirubin AST ALT Alkaline Phosphatase Creatine Kinase Troponin I Total Protein Albumin TSH Urine Color Yellow Urine Appearance Clear Urine pH 6.5 Urine Protein Negative Urine Glucose (UA) Negative Urine Ketones Negative Urine Blood Negative Urine Nitrite Negative Urine Bilirubin Negative Urine Urobilinogen 0.2 Ur Leukocyte Esterase Negative Urine HCG, Qual Negative Blood Type Antibody Screen Crossmatch 07/01/19 07/01/19 07/01/19 17:36 17:36 17:36 WBC RBC Hgb Hct MCV MCH MCHC RDW Plt Count MPV Absolute Neuts (auto) Neutrophils % Neutrophils % (Manual) Lymphocytes % Lymphocytes % (Manual) Monocytes % (Manual) Hypochromia Platelet Estimate Platelet Comment Anisocytosis Microcytosis Schistocytes Retic Count 0.80 PT with INR INR PTT (Actin FS) Sodium Potassium Chloride Carbon Dioxide Anion Gap BUN Creatinine Est GFR (CKD-EPI)AfAm Est GFR (CKD-EPI)NonAf Random Glucose Calcium Magnesium Iron 9 L 12 L TIBC 429 Iron Saturation 2 L Unsaturated IBC 417 H Total Bilirubin AST ALT Alkaline Phosphatase Creatine Kinase Troponin I Total Protein Albumin TSH Urine Color Urine Appearance Urine pH Urine Protein Urine Glucose (UA) Urine Ketones Urine Blood Urine Nitrite Urine Bilirubin Urine Urobilinogen Ur Leukocyte Esterase Urine HCG, Qual Blood Type Antibody Screen Crossmatch 07/01/19 07/02/19 07/02/19 17:36 00:45 00:45 WBC RBC Hgb Hct MCV MCH MCHC RDW Plt Count MPV Absolute Neuts (auto) Neutrophils % Neutrophils % (Manual) Lymphocytes % Lymphocytes % (Manual) Monocytes % (Manual) Hypochromia Platelet Estimate Platelet Comment Anisocytosis Microcytosis Schistocytes Retic Count PT with INR INR PTT (Actin FS) Sodium Potassium Chloride Carbon Dioxide Anion Gap BUN Creatinine Est GFR (CKD-EPI)AfAm Est GFR (CKD-EPI)NonAf Random Glucose Calcium Magnesium Iron TIBC Iron Saturation Unsaturated IBC Total Bilirubin AST ALT Alkaline Phosphatase Creatine Kinase Troponin I Cancelled < 0.02 Total Protein Albumin TSH Urine Color Urine Appearance Urine pH Urine Protein Urine Glucose (UA) Urine Ketones Urine Blood Urine Nitrite Urine Bilirubin Urine Urobilinogen Ur Leukocyte Esterase Urine HCG, Qual Blood Type O POSITIVE Antibody Screen Negative Crossmatch See Detail 07/02/19 04:30 WBC RBC Hgb Hct MCV MCH MCHC RDW Plt Count MPV Absolute Neuts (auto) Neutrophils % Neutrophils % (Manual) Lymphocytes % Lymphocytes % (Manual) Monocytes % (Manual) Hypochromia Platelet Estimate Platelet Comment Anisocytosis Microcytosis Schistocytes Retic Count PT with INR INR PTT (Actin FS) Sodium Potassium Chloride Carbon Dioxide Anion Gap BUN Creatinine Est GFR (CKD-EPI)AfAm Est GFR (CKD-EPI)NonAf Random Glucose Calcium Magnesium Iron TIBC Iron Saturation Unsaturated IBC Total Bilirubin AST ALT Alkaline Phosphatase Creatine Kinase Troponin I < 0.02 Total Protein Albumin TSH Urine Color Urine Appearance Urine pH Urine Protein Urine Glucose (UA) Urine Ketones Urine Blood Urine Nitrite Urine Bilirubin Urine Urobilinogen Ur Leukocyte Esterase Urine HCG, Qual Blood Type Antibody Screen Crossmatch HOSPITAL COURSE: Date of Admission:07/01/19 Date of Discharge: 07/02/19 Pre-Hospital course 38 year-old female with a PMH significant for anemia and asthma who presented to the ED for evaluation of chest pain. Patient reports onset of left-sided chest pain at 10:00am this morning. The pain is intermittent and radiates down the left arm. Patient also reports SOB at rest for the past week and palpitations. Patient endorses heavy menstrual periods for years, has been prescribed iron supplements but does not take them. Was told she has fibroids. LMP 06/07/19. No prior history of transfusion. ED Course (1) Hgb 7.5, MCV 61.8 (2) Troponin neg x 1 Subsequent hospital course Ms. Oakley is a 38 year-old female with a PMH significant for anemia, asthma, and s/p gastric sleeve, placed on observation for chest pain and symptomatic anemia. Atypical chest pain ACS ruled out --troponin neg x 3 --ECG: no acute ischemia --CXR: unremarkable --telemetry monitoring: no events --07/02 Echo: normal LV, normal RV, no valve pathology Microcytic anemia --Hgb 7.5 on admission, transfused 2U -->Hgb 9.8 --likely secondary to fibroids; had transvaginal US last week with Dr. Sow --outpatient follow up with Dr. Sow --iron supplements Asthma --stable Minutes to complete discharge: 35 Discharge Summary Problems reviewed: Yes Reason For Visit: ANEMIA Current Active Problems Anemia (Acute) Atypical chest pain (Acute) Nicotine vapor product user (Acute) Condition: Stable - Instructions - Home Medications Comprehensive Discharge Medication List: Ambulatory Orders NK [No Known Home Medication] 07/01/19 This patient is new to me today: No Emergency Visit: Yes ED Registration Date: 07/01/19 Care time: The patient presented to the Emergency Department on the above date and was hospitalized for further evaluation of their emergent condition. Critical Care patient: No - Discharge Referral Referred to [facility] Debi Philippe NP: This documentation has been prepared by the Herbie garcia Maria, SCRIBE, under my direction and personally reviewed by me in its entirety. I confirm that the documentation accurately reflects all work, treatment, procedures, and medical decision making performed by me.
[2019-07-02] MEDS ORDERED: FERROUS SO4 325 MG TABLET (FP) PO SCH (22:00)
== END 2019-07-02 19:00 | disposition home or self-care (01) ==
LOC: FER 15:41 → INTOOBSV 17:48 → FM/S 17:48
PROVIDERS: ADMIT Internal Medicine; ATTEND Nurse Practitioner Acute Care
PROC: 3E033GC Introduction of Other Therapeutic Substance into Peripheral Vein, Percutaneous Approach (ICD-10-PCS; principal; 2019-07-01)
PROC: 3E013GC Introduction of Other Therapeutic Substance into Subcutaneous Tissue, Percutaneous Approach (ICD-10-PCS; 2019-07-01)
DX: R07.89 Other chest pain (principal); D64.89 Other specified anemias; F17.200 Nicotine dependence, unspecified, uncomplicated; J45.909 Unspecified asthma, uncomplicated; Z88.1 Allergy status to other antibiotic agents; Z98.84 Bariatric surgery status
CPT/HCPCS: 36415; 36430; 36511; 71046-TC-FY; 80053; 81003; 82550; 83010; 83540; 83550; 83735; 84443; 84484; 84703; 85025; 85044; 85610; 85730; 86850; 86900; 86901; 86922; 87086; 93005; 93306-TC; 99284-25; G0378; P9038; P9058

== ENCOUNTER 2020-10-12 00:09 | Emergency (ER) | payer BC ==
[2020-10-12 00:17] VITALS: BP 122/48; PULSE 67; TEMP 97.9; BMI 27.7
[2020-10-12 02:12] LABS: BASO % 0.5 % (0-2.0); EOS % 3.2 % (0-4.5); HEMATOCRIT 27.7 % (32.4-45.2); HEMOGLOBIN 8.5 GM/dL (10.7-15.3); LYMPH % 29.8 % (8-40); MCHC 30.5 g/dl (32.0-36.0); MEAN CELL VOLUME 61.8 fl (80-96); MEAN PLT VOLUME 9.4 fl (7.5-11.1); MONO % 7.5 % (3.8-10.2); PLATELET COUNT 230 K/MM3 (134-434); RBC 4.49 M/mm3 (3.60-5.2); RDW 17.5 % (11.6-15.6); WHITE BLOOD COUNT 4.6 K/mm3 (4.0-10.0)
[2020-10-12 02:19] LABS: MCH 18.8 pg (25.7-33.7)
[2020-10-12 02:20] LABS: PH,URINE 5.5 (5.0-8.0); URINE APPEARANCE CLEAR; URINE BILIRUBIN NEGATIVE (NEGATIVE); URINE COLOR YELLOW; URINE GLUCOSE (UA) NEGATIVE (NEGATIVE); URINE KETONE NEGATIVE (NEGATIVE); URINE LEUK ESTERASE NEGATIVE (NEGATIVE); URINE NITRITE NEGATIVE (NEGATIVE); URINE PROTEIN NEGATIVE (NEGATIVE); URINE UROBILINOGEN 0.2 mg/dL (0.2-1.0)
[2020-10-12 02:32] LABS: CALCIUM 8.6 mg/dL (8.5-10.1)
[2020-10-12 02:33] LABS: ALBUMIN 4.1 g/dl (3.4-5.0); BLOOD UREA NITROGEN 11.1 mg/dL (7-18)
[2020-10-12 02:36] LABS: CREATININE 0.9 mg/dL (0.55-1.3)
[2020-10-12 02:38] LABS: TOT PROT 7.4 g/dl (6.4-8.2)
[2020-10-12 02:54] LABS: BILIRUBIN,TOTAL 0.4 mg/dL (0.2-1)
[2020-10-12] MEDS ORDERED: IBUPROFEN 400 MG TABLET (FP) PO ONE ×2 (03:46→03:47)
[2020-10-12 05:44] LABS: ANISOCYTOSIS 1+; MACROCYTOSIS 0; PLATELET ESTIMATE NORMAL
== END 2020-10-12 03:55 | disposition home or self-care (01) ==
LOC: FER 00:09
DX: R10.2 Pelvic and perineal pain (principal)
CPT/HCPCS: 36415; 74176-TC; 80053; 81003; 81025; 84703; 85025; 87086; 99284-25

== ENCOUNTER 2021-08-31 15:05 | Emergency (ER) | payer BC ==
[2021-08-31 15:34] VITALS: BP 105/57; PULSE 77; TEMP 97.8; BMI 29.2
[2021-08-31] MEDS ORDERED: ACETAMINOPHEN 500 MG TABLET (FP) PO ONE (16:52)
[2021-08-31] MEDS ORDERED: ACETAMINOPHEN 500 MG TABLET (FP) ONE (17:22)
[2021-08-31 17:56] LABS: URINE APPEARANCE CLEAR; URINE BILIRUBIN NEGATIVE (NEGATIVE); URINE COLOR YELLOW; URINE GLUCOSE (UA) NEGATIVE (NEGATIVE); URINE KETONE NEGATIVE (NEGATIVE); URINE LEUK ESTERASE NEGATIVE (NEGATIVE); URINE NITRITE NEGATIVE (NEGATIVE); URINE PROTEIN NEGATIVE (NEGATIVE); URINE UROBILINOGEN 0.2 mg/dL (0.2-1.0)
== END 2021-08-31 18:31 | disposition home or self-care (01) ==
LOC: JERFT 15:05
DX: M54.50 Low back pain, unspecified (principal)
CPT/HCPCS: 81003; 84703; 87077; 87086; 99283-25

== ENCOUNTER 2025-02-06 17:46 | Emergency (ER) | payer BC ==
[2025-02-06 18:13] VITALS: BP 111/63; PULSE 65; RESP 18; TEMP 98.6; BMI 27.3
[2025-02-06] MEDS ORDERED: KETOROLAC TROMETHAMINE 60 MG/2 ML VIAL ONE (19:51)
[2025-02-06] MEDS: KETOROLAC TROMETHAMINE 60 MG/2 ML VIAL IM ONE (19:56)
[2025-02-06 20:26] LABS: HCG,QUALITATIVE URINE Negative
== END 2025-02-06 20:49 | disposition home or self-care (01) ==
LOC: FER 17:46
PROC: 3E0233Z Introduction of Anti-inflammatory into Muscle, Percutaneous Approach (ICD-10-PCS; principal; 2025-02-06)
DX: M54.42 Lumbago with sciatica, left side (principal); R20.0 Anesthesia of skin; X50.1XXA Overexertion from prolonged static or awkward postures, initial encounter
CPT/HCPCS: 81003; 81015; 84703; 99284-25

== ENCOUNTER 2025-04-11 16:13 | Emergency (ER) | payer BC ==
[2025-04-11 16:34] VITALS: BMI 27.3
[2025-04-11 17:30] LABS: ABSOLUTE IMMATURE GRANULOCYTES 0.00 x10^3/uL (0.0-0.031); BASOPHILS # 0.03 x10^3/uL (0.01-0.08); EOSINOPHIL % 1.3 % (0.7-5.8); EOSINOPHILS # 0.07 x10^3/uL (0.04-0.36); MCHC 33.5 g/dl (32.2-35.5); MEAN CELL VOLUME 88.8 fl (79.4-94.8); MEAN PLT VOLUME 11.0 fl (9.4-12.3); MONOCYTE # 0.35 x10^3/uL (0.24-0.86); MONOCYTE % 6.6 % (4.7-12.5); RDW 12.2 % (12.2-17.1)
[2025-04-11 17:47] LABS: INR 1.1 (0.83-1.09); PROTHROMBIN TIME (PATIENT) 12.2 SEC (9.7-13.0)
[2025-04-11 17:50] LABS: ACTIVATED PTT 36.0 SECONDS (25.2-36.5)
[2025-04-11 18:25] LABS: GLUCOSE,RANDOM 63 mg/dL (74-106); TOT PROT 6.6 g/dl (6.4-8.2)
[2025-04-11 18:26] LABS: CO2 26 mmol/L (21-32)
[2025-04-11 18:28] LABS: ALK PHOS 34 U/L (40-150)
[2025-04-11 18:30] LABS: SGOT/AST 17 U/L (5-34); SGPT/ALT 15 U/L (0-55)
[2025-04-11 18:31] LABS: CREATININE 0.91 mg/dL (0.55-1.3)
[2025-04-11 18:52] LABS: HCV DIAGNOSTIC IN-HOUSE W/RFLX NON-REACTIVE (NONREACTIVE)
[2025-04-11] MEDS ORDERED: SODIUM CHLORIDE 0.9% 500 ML INFUS.BAG IV ONE (19:05)
[2025-04-11] MEDS ORDERED: KETOROLAC TROMETHAMINE 15 MG/ML VIAL IVPUSH ONE (19:05)
[2025-04-11 19:06] VITALS: TEMP 99
[2025-04-11 19:07] VITALS: PULSE 61; RESP 20
[2025-04-11] MEDS ORDERED: IBUPROFEN 600 MG TABLET (FP) PO ONE (19:35)
[2025-04-11] MEDS: IBUPROFEN 600 MG TABLET (FP) PO ONE (19:37)
[2025-04-11 20:01] LABS: HIV INTERPRETATION NEGATIVE (NEGATIVE)
== END 2025-04-11 19:46 | disposition home or self-care (01) ==
LOC: FER 16:13
DX: R07.2 Precordial pain (principal); R05.9 Cough, unspecified
CPT/HCPCS: 36415; 71046-TC-FY; 80053; 84484; 84703; 85025; 85379; 85610; 85730; 86803; 87389; 87637-QW; 93005; 99285-25